=== PATIENT | female | born 1955 | race Caucasian/White ===

== ENCOUNTER → 2018-05-20 12:25 | Outpatient (CLI) | payer OTHER, SELFPAY ==
--- NOTE | 2018-05-20 | DI.MG.S_ITS ---
BILATERAL DIGITAL SCREENING MAMMOGRAM 3D/2D WITH CAD: 05/20/2018 CLINICAL: Routine screening. Family history of breast cancer. Comparison is made to exams dated: 04/24/2016 mammogram - [facility], 12/16/2013 mammogram, and 12/08/2011 mammogram - [facility]. The tissue of both breasts is heterogeneously dense. This may lower the sensitivity of mammography. Current study was also evaluated with a Computer Aided Detection (CAD) system. There is an asymmetry in the right breast middle depth outer region seen on the craniocaudal view only. There is possible architectural distortion associated with the asymmetry. No other significant masses, calcifications, or other findings are seen in either breast. IMPRESSION: INCOMPLETE: NEEDS ADDITIONAL IMAGING EVALUATION The asymmetry in the right breast is indeterminate. Additional views with possible ultrasound are recommended. This exam was interpreted at Station ID: [id number]. NOTE: For mammograms, a report in lay terms will be sent to the patient. Approximately 15% of breast malignancies will not be visualized mammographically. In the management of a palpable breast mass, a negative mammogram must not discourage biopsy of a clinically suspicious lesion. Electronically Signed By: Jonathan Porras M.D. ecl/:05/20/2018 20:11:39 letter sent: Additional Imaging Needed ACR BI-RADS Category 0: Incomplete 3340F
== END ==
PROVIDERS: PCP Nurse Practitioner Family; Visit Provider Family Medicine
DX: Z12.31 Encounter for screening mammogram for malignant neoplasm of breast (principal); Z80.3 Family history of malignant neoplasm of breast
CPT/HCPCS: 77063; 77067

== ENCOUNTER → 2018-06-06 13:35 | Outpatient (CLI) | payer OTHER, SELFPAY ==
--- NOTE | 2018-06-06 | DI.MG.S_ITS ---
UNILATERAL RIGHT DIGITAL DIAGNOSTIC MAMMOGRAM 3D/2D WITH ADDITIONAL VIEWS: 06/06/2018 CLINICAL: Additional evaluation requested from prior study. Comparison is made to exams dated: 05/20/2018 mammogram, 04/24/2016 mammogram - [facility], and 12/16/2013 mammogram - [facility]. The tissue of the right breast is heterogeneously dense. This may lower the sensitivity of mammography. There is a benign irregular equal density asymmetry with an indistinct margin in the right breast anterior depth lateral region seen on the craniocaudal view only. This is not seen in additional views. The area appears similar to prior studies. No other significant masses or calcifications are seen in the breast. IMPRESSION: BENIGN There is no mammographic evidence of malignancy. A 1 year screening mammogram is recommended. This exam was interpreted at Station ID: [id number]. NOTE: For mammograms, a report in lay terms will be sent to the patient. Approximately 15% of breast malignancies will not be visualized mammographically. In the management of a palpable breast mass, a negative mammogram must not discourage biopsy of a clinically suspicious lesion. Electronically Signed By: Navneet Hui M.D. ddsheree/:06/06/2018 14:46:57 letter sent: Normal Exam ACR BI-RADS Category 2: Benign Finding(s) 3342F
== END ==
PROVIDERS: PCP Nurse Practitioner Family; Visit Provider Family Medicine
DX: R92.8 Other abnormal and inconclusive findings on diagnostic imaging of breast (principal)
CPT/HCPCS: 77065; G0279

== ENCOUNTER → 2019-09-25 12:04 | Outpatient (CLI) | payer MEDICARE, OTHER, SELFPAY ==
--- NOTE | 2019-09-25 | DI.MG.S_ITS ---
BILATERAL DIGITAL SCREENING MAMMOGRAM 3D/2D WITH CAD: 09/25/2019 CLINICAL: Routine screening. Family history of breast cancer. Comparison is made to exams dated: 06/06/2018 mammogram, 04/24/[address] [facility], 12/16/2013 mammogram - [facility], and 05/20/2018 [facility]. The tissue of both breasts is heterogeneously dense. This may lower the sensitivity of mammography. Current study was also evaluated with a Computer Aided Detection (CAD) system. No significant masses, calcifications, or other findings are seen in either breast. There has been no significant interval change. IMPRESSION: NEGATIVE There is no mammographic evidence of malignancy. A 1 year screening mammogram is recommended. This exam was interpreted at Station ID: [id number]. NOTE: For mammograms, a report in lay terms will be sent to the patient. Approximately 15% of breast malignancies will not be visualized mammographically. In the management of a palpable breast mass, a negative mammogram must not discourage biopsy of a clinically suspicious lesion. Electronically Signed By: Brielle espinoza/saira:09/25/2019 13:56:53 letter sent: Normal Exam ACR BI-RADS Category 1: Negative 3341F
== END ==
PROVIDERS: PCP Nurse Practitioner Family; Visit Provider Family Medicine
DX: Z12.31 Encounter for screening mammogram for malignant neoplasm of breast (principal); Z80.3 Family history of malignant neoplasm of breast; M85.851 Other specified disorders of bone density and structure, right thigh; Z78.0 Asymptomatic menopausal state; Z82.62 Family history of osteoporosis
CPT/HCPCS: 77063; 77067; 77080

== ENCOUNTER 2020-03-01 12:27 | Day surgery (SDC) | payer MEDICARE, OTHER, SELFPAY ==
[2020-02-24 11:09] VITALS: BMI 23.1
[2020-03-01] VITALS (9 sets, daily range): BP systolic 103–147; BP diastolic 65–88; PULSE 58–86; RESP 10–18; TEMP 36.2–36.9; O2SAT 95–100; BMI 23.1
--- NOTE | 2020-03-01 | PATH_ITS ---
[facility] Accession Number: [id number] . 01 Material submitted: . endometrium - ENDOMETRIAL CURETTINGS . 01 Clinical history: . HYSTEROSCOPY D / C . 01 Diagnosis: Endometrium, Curettage: Superficial fragments of mildy atypical glandular/papillary proliferation; please see comment. MRV 03/10/2020 1808 Local . 01 Comment: Histologic sections are predominantly of a complex hyperplastic mucinous mucosa with active inflammation and foci of mild nuclear atypia. Also present are few superficial strips of endometrial mucosa. Per discussion with Dr. Bailey, this tissue was sampled from a polypoid lesion in the right lateral to posterior lower uterine segment, not within the endocervix, and did not have the typical clinical appearance of an endocervical polyp. 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 In this setting, there is increased likelihood of an unsampled carcinoma. As such, close clinical followup and, if indicated, repeat sampling is recommended. . As part of routine quality assurance clerk, Dr. Ortez has reviewed this case and agrees with the interpreation above. The histologic findings were discussed between Dr. Huynh and Dr. Bailey on 03/10/2020 at 11:30 a.m. . 01 Electronically signed: . Shyam Huynh MD, PhD, Pathologist NPI- [id number] . 01 Gross description: . ENDOMETRIAL CURETTINGS: Received in formalin are multiple fragment(s) of davidson, soft tissue measuring 2.5 x 1.8 x 0.2 cm in aggregate submitted entirely in 1 cassette(s) /Q 03/02/2020 0709 Local . 01 Pathologist provided ICD-10: N95.0, N88.2 . 01 CPT . 233999 Performed at: 01 [facility] [address], [place], [place] [id number] MD Navneet Romero MD Phone: [phone]
[2020-03-01] MEDS: LACTATED RINGERS 1,000 ML 42 ML IV (13:23)
[2020-03-01 13:25] LABS: Add Manual Diff / Slide Review NO; Basophils Absolute Auto 0 /uL (0-100); Basophils Percent Auto 0.8 % (0-2); Eosinophils Absolute Auto 0 /uL (0-450); Eosinophils Percent Auto 0.5 % (2-4); Hematocrit 41.4 % (36-46); Lymphocytes Absolute Auto 1500 /uL (1100-4500); Lymphocytes Percent Auto 25.5 % (25-40); Mean Corpuscular HGB Conc 33.8 % (30-36); Mean Corpuscular Hemoglobin 30.1 PG (26-34); Mean Corpuscular Volume 89.2 fL (80-100); Monocytes Absolute Auto 400 /uL (0-900); Monocytes Percent Auto 7.4 % (3-14); Neutrophils Absolute Auto 3900 /uL (1500-7000); Neutrophils Percent Auto 65.8 % (50-75); Platelet Count 198 X10^3/uL (150-400); Red Blood Cell Count 4.64 X10^6/uL (4.0-5.2); Red Cell Distribution Width 12.7 % (11.6-14.8); White Blood Cell Count 5.9 X10^3/uL (4.5-11.0)
--- NOTE | 2020-03-01 13:27 | PM.PREOP ---
Pre-operative Note COVID-19 COVID-19 status: Negative Result date/Date tested (Pos, Neg/Pending): 02/27/20 Interval Note History & Physical reviewed/Exam performed by Physician: Yes Changes to H&P: Yes H&P completed within 30 days and has changed as indicated here:: Patient is on to additional medications, now taking flecainide and diltiazem for her cardiac history, AFib. Medications and doses added in the EMR. No new allergies. No other changes to medical history.
[2020-03-01 13:43] LABS: Alanine Aminotransferase 17 IU/L (<35); Albumin 4.4 g/dL (3.5-5.0); Albumin Globulin Ratio 1.4 (1.0-2.8); Alkaline Phosphatase 81 U/L (38-126); Aspartate Aminotransferase 35 IU/L (14-36); BUN Creatinine Ratio 16.1 (6-22); Bilirubin Total 1.2 mg/dL (0.2-1.3); Blood Urea Nitrogen 15 mg/dL (7-17); Calcium 9.4 mg/dL (8.4-10.2); Carbon Dioxide 25 mmol/L (22-32); Chloride 105 mmol/L (98-107); Estimated Glomerular Filt Rate > 60.0 mL/min (>60); Globulin 3.1 g/dL (1.7-4.1); Glucose 102 mg/dL (80-110); HEMOLYSIS 21 (0-50); Potassium 4.1 mmol/L (3.4-5.1); Sodium 139 mmol/L (137-145); Total Protein 7.5 g/dL (6.3-8.2)
--- NOTE | 2020-03-01 14:01 | SUR.OPER ---
Lithotomy on padded OR bed, head on pillow, arms secured on padded arm boards at <90 degrees abduction. Legs secured in padded yellow fins stirrups.
[2020-03-01] MEDS: SILVER NITRATE STICK 1 EACH TOP (14:45)
--- NOTE | 2020-03-01 15:19 | SUR.PHASEI ---
Pt arrived to pACU with oral airway, needing manual chin lift for airway patency. Airway now out, breathing on own.
--- NOTE | 2020-03-01 15:20 | P.OP_ITS ---
Operative Date/Time/Diagnoses Date of procedure: 03/01/20 Time of procedure: 15:00 Pre-op diagnosis: Postmenopausal bleeding, thickened endometrium with vascularity, possible polyp, other endometrial mass or abnormal endometrium Post-op diagnosis: other (Abnormal appearing endometrium suspicious for endometrial cancer) Procedure & Clinicians Procedure: Dilatation and curettage, hysteroscopy Same procedure as scheduled: Yes Surgeon: Demetria Bailey Click Yes if Unassisted: No Anesthesia Type: General Operative Notes Findings: Bimanual examination revealed an anteverted mobile normal size uterus. No adnexal masses were palpated. Cervix palpated to be normal. On speculum exam cervix was normal in appearance. Cervical os was slightly open now after her misoprostol. On hysteroscopy there was a cluster of white polypoid, abnormal appearing endometrium in the lower uterine segment on her right lateral to right posterior uterine wall. The area of abnormal tissue was just beyond the internal cervical os. There was some stringy white adhesions extending from in front of this abnormal tissue across the lower uterine cavity to her left side. The stringy adhesions were no longer visible after the curettage on repeat hysteroscopy. Remainder of the endometrial cavity appeared normal with the endometrium appearing normal in the other areas of her uterus. There were no other visible lesions, no polyps or submucosal fibroids. The cavity was visualized to the uterine fundus. The left tubal ostia was visible. The right cornua was visible but tubal ostia not visible. Specimen(s): other (Endometrial curettings) Estimated Blood Loss (mL): 5 Procedure in detail: After being properly identified she was transferred to the operating room. After an adequate level of general anesthesia was obtained she was [facility] in the dorsal lithotomy position. Bimanual examination was performed. She was prepped and draped in routine sterile fashion. Her bladder was sterilely drained with a rubber catheter with the prep. An open-sided graves speculum was placed and the cervix was grasped with a single-tooth tenaculum. The cervical os appears slightly open, status post her misoprostol today. A very small dilator was able to be passed without difficulty. The next dilator was passed as well without difficulty. The uterus was then sounded, sounded to 5.5 cm. The cervical os was further sterilely dilated to a number 8 dilator. The small hysteroscope was placed. The uterine cavity and cervical canal were inspected with the above-noted findings. Normal saline solution was used as the uterine distention medium. Small polyp forceps were initially placed and attention placed to the area of the abnormal tissue, to try to remove some tissue in that area. A minimal amount tissue was removed. With appearance of tissue, it appeared curettage with likely sample and remove the tissue, but I did not want to risk not obtaining an adequate sample. At this time the cervix was further dilated up to a #9, to be able to pass the resectoscope for a targeted biopsy with the loop. The resectoscope was passed with ease. The uterine distention medium was changed to sorbitol. With placing the resectoscope, with the fluid through the scope a fair amount of white abnormal appearing tissue came through, had been flushed through the cervical canal. The scope was removed and the tissue was collected. With replacing the scope there was a filmy look that was determined to be from the lens of the scope. With changing the scope there was difficulty with the light attachment. At this point with appearing to obtain adequate tissue, rather than await getting another attachement for the ersectoscope, curettage was performed with attention to the right lower uterine segment and a good amount of the abnormal appearing tissue was obtained. The smaller hysteroscope was again placed and visualization revealed most of the abnormal tissue area to have been removed, well sampled. Repeat inspection revealed no other abnormal appearing areas and again no polyps. A curette was again placed and sharp curettage of the remainder of the uterine cavity was also performed. Samples all placed on Telfa to go to pathology as one specimen. The tenaculum was removed. There was a small amount of persistent bleeding at her left tenaculum site which ceased after application of silver nitrate. Good hemostasis was noted. The procedure was ended. She tolerated the procedure well and went to recovery room stable condition. Complications: none Post-operative Condition: stable Disposition: PACU Plan for aftercare: Transferred to PACU in good condition. She will resume her Xarelto tonight. Discharge home today if she continues to do well. Will have her follow up in the office in 1 week for ersults and a post-op check, unless she prefers follow- up by phone to stay on [facility], with current Covid 19 precautions
[2020-03-01] MEDS: ACETAMINOPHEN 325 MG TABLET 650 MG PO (16:02)
--- NOTE | 2020-03-01 17:10 | SUR.PREOP ---
Late entry: glucose not done pre op due to blood draw for BMP- MD aware.
== END 2020-03-01 16:20 | disposition home or self-care (01) ==
PROVIDERS: PCP Nurse Practitioner Family; Referring Provider Obstetrics & Gynecology; Visit Provider Obstetrics & Gynecology
PROC: 0UDB8ZZ Extraction of Endometrium, Via Natural or Artificial Opening Endoscopic (ICD-10-PCS; CPT 58558; principal; 2020-03-01 13:30)
DX: N95.0 Postmenopausal bleeding (principal); N94.89 Other specified conditions associated with female genital organs and menstrual cycle; N88.2 Stricture and stenosis of cervix uteri; I48.0 Paroxysmal atrial fibrillation; B00.9 Herpesviral infection, unspecified
CPT/HCPCS: 58558; 80053; 85025; 86850; 86900; 86901; J1100; J1885; J2250; J2405; J2704; J3010

== ENCOUNTER → 2020-10-19 12:01 | Outpatient (CLI) | payer MEDICARE, OTHER, SELFPAY ==
--- NOTE | 2020-10-19 | DI.MG.S_ITS ---
BILATERAL DIGITAL SCREENING MAMMOGRAM 3D/2D WITH CAD: 10/19/2020 CLINICAL: Routine screening. Family history of breast cancer. Comparison is made to exams dated: 09/25/2019 mammogram, 05/20/2018 mammogram, 06/06/2018 mammogram, and 04/24/2016 mammogram - [facility]. The tissue of both breasts is heterogeneously dense. This may lower the sensitivity of mammography. Current study was also evaluated with a Computer Aided Detection (CAD) system. No significant masses, calcifications, or other findings are seen in either breast. There has been no significant interval change. IMPRESSION: NEGATIVE There is no mammographic evidence of malignancy. A 1 year screening mammogram is recommended. This exam was interpreted at Station ID: [id number]. NOTE: For mammograms, a report in lay terms will be sent to the patient. Approximately 15% of breast malignancies will not be visualized mammographically. In the management of a palpable breast mass, a negative mammogram must not discourage biopsy of a clinically suspicious lesion. Electronically Signed By: Zan andres/saira:10/19/2020 12:20:39 letter sent: Normal Exam ACR BI-RADS Category 1: Negative 3341F
== END ==
PROVIDERS: PCP Family Medicine; Referring Provider Family Medicine; Visit Provider Family Medicine
DX: Z12.31 Encounter for screening mammogram for malignant neoplasm of breast (principal); Z80.3 Family history of malignant neoplasm of breast
CPT/HCPCS: 77063; 77067

== ENCOUNTER 2020-10-28 11:58 | Day surgery (SDC) | payer MEDICARE, OTHER, SELFPAY ==
--- NOTE | 2020-10-28 | PATH_ITS ---
[facility] Accession Number: [id number] . 01 Material submitted: . colon - POLYP @DESCENDING COLON . 02 Diagnosis: Descending Colon, Polyp: Serrated lesion, favor sessile serrated adenoma. [facility] 11/02/2020 1048 Local . 02 Electronically signed: . Shyam Huynh MD, PhD, Pathologist NPI- [id number] . 01 Gross description: . POLYP @DESCENDING COLON: Received in formalin are multiple fragment(s) of davidson, soft tissue measuring 0.1 x 0.1 x 0.1 cm to 0.3 x 0.2 x 0.2 cm submitted entirely in 1 cassette(s) /RACHNA 10/29/2020 2019 Local . 02 Pathologist provided ICD-10: D12.4 . 02 CPT . 335040 Performed at: 01 [facility] [address] [place] [address], [place], [place] [id number] MD Navneet Romero MD Phone: [phone] Performed at: [address] [facility] [address] [place], [place] [id number] MD Malia Alberto MD Phone: [phone]
[2020-10-28 12:23] VITALS: BP 131/77; PULSE 85; RESP 16; TEMP 36.3; O2SAT 100; BMI 23.3
[2020-10-28] MEDS: LACTATED RINGERS 1,000 ML 200 ML IV (12:35)
--- NOTE | 2020-10-28 13:02 | PM.HP.1 ---
History of Present Illness History of Present Illness Date Patient Seen: 10/28/20 Time Patient Seen: 13:02 Chief complaint: SDC Narrative: The patient presents for colorectal sreening. They have never had any previous examination for such. No personal or family history of colon cancer. On further history denies any recent gastrointestinal symptoms. No nausea, vomiting, abdominal pain, loss of appetite, unexplained weight loss, change in bowel habits, diarrhea, constipation, melena, hematochezia, or bright red blood per rectum. 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 (~2009) Surgical History History of tonsillectomy Family & Social History Family History Father Lung cancer Hypertension Cataract Emphysema of lung Mother Acute ischemic stroke Aortic stenosis Grandmother Stomach cancer Brain tumor Grandmother Liver tumor Grandfather Colon cancer Social History: household members spouse Tobacco & Substance use: Smoking Status Never smoker alcohol intake current alcohol intake frequency a few times a week Substance Use Type does not use Meds Home Medications and Allergies Home Medications Medication Instructions Recorded Confirmed Type acyclovir 5 % topical ointment 1 applictn TOP 6XD PRN 02/18/20 10/28/20 History diltiazem HCl 120 mg 120 mg PO DAILY 02/18/20 10/28/20 History capsule,extended release 24 hr rivaroxaban 20 mg tablet 20 mg PO DAILY 02/18/20 10/28/20 History flecainide 50 mg PO BID 02/24/20 10/28/20 History Allergies Allergy/AdvReac Type Severity Reaction Status Date / Time bee venom protein (honey bee) Allergy Severe Swelling Verified 10/28/20 12:13 at site Penicillins [PENICILLINS] Allergy Severe Red welts Verified 10/28/20 12:13 Review of Systems Review of Systems Narrative: A 10 point review of systems is negative except as noted in the HPI Exam Vital Signs (past 8 hours): - 10/28/20 12:23 Temperature 97.4 F L Pulse Rate 85 Respiratory Rate 16 Blood Pressure 131/77 Pulse Oximetry 100 Oxygen Delivery Method Room Air Narrative Exam Narrative: General-no acute distress, well nourished adult woman HEENT-moist mucous membranes, no scleral icterus Neck-supple, no lymphadenopathy Chest- non labored respirations, clear to auscultation bilaterally Cardiac-regular rate no peripheral edema Abdomen-soft, nontender, non distended Extremities-warm, well perfused Neurological-alert and oriented, no focal deficits Assessment & Plan Assessment and plan (1) Screening for colon cancer: Status: Acute Assessment & Plan narrative: The patient requires colorectal screening and colonoscopy is recommended. Technical details were discussed. Risks, benefits, alternatives explained. Risks including but not limited to myocardial infarction, aspiration, bleeding, pain, missed lesion, incomplete examination, need for further radiographic studies, colonic perforation, and need for major abdominal surgery were discussed. All questions were answered to their satisfaction, and they are in agreement with this plan.
--- NOTE | 2020-10-28 13:56 | PM.OP.ENDO ---
Operative Date/Time/Diagnoses Date of procedure: 10/28/20 Time of procedure: 13:56 Pre-op diagnosis: Screening colonoscopy Post-op diagnosis: same Procedure & Clinicians Study performed: Colonoscopy Polypectomy Same procedure as scheduled: Yes Indications: 65-year-old female no prior colonoscopy presents for routine screening. Surgeon: Doni Starks Procedure Notes Procedure in detail: Medications: Conscious sedation using 6mg IV midazolam and 300mcg IV of fentanyl The history and physical was performed/updated and the patient is ASA class is 2. The procedure was discussed in detail with the patient. Potential risks complications including infection, bleeding, missed diagnosis, perforation, need for surgery, and were explained. Their questions were answered and informed consent was obtained. Patient was brought to the procedure room and placed standard monitoring equipment. The patient's vital signs were monitored continuously throughout the entire procedure. Prior to starting time-out was performed. The patient was placed in the left lateral recumbent position. Procedural sedation was administered. Examination began with a thorough inspection of the perianal area there was no evidence of fissures, fistulae, external hemorrhoids or cutaneous malignancy. The colonoscopy scope was then placed into the anal canal and was advanced to the cecum, which was identified by the ileocecal valve, the appendiceal orifice and the confluence of the taenia. The scope was then slowly withdrawn examining colon thoroughly in all directions, irrigating it of any residual stool. 5 mm sessile polyp in the descending colon removed in pieces using biopsy forceps. The patient tolerated the procedure well. They will be discharged once criteria are met. The prep was of good/excellent quality. The withdrawl time was 20 minutes. The sedation time was 44 minutes. Findings: polyp Specimen(s): other (Descending colon polyp) Complications: none Impression: Colonic polyp Post-procedure Recommendations: Colonscopy in 5 years Disposition: same day surgery
[2020-10-28] MEDS: MIDAZOLAM 5 MG/5 ML VIAL IV (13:58)
[2020-10-28 13:59] VITALS: BP 112/62; PULSE 57; RESP 10; TEMP 36; O2SAT 97
[2020-10-28] MEDS: fentaNYL 250 MCG/5 ML INJ IV (13:59)
[2020-10-28 14:04] VITALS: BP 98/60; PULSE 57; RESP 10; TEMP 36; O2SAT 98
[2020-10-28 14:09] VITALS: BP 97/56; PULSE 66; RESP 11; TEMP 36.4; O2SAT 100
[2020-10-28 14:14] VITALS: BP 112/61; PULSE 58; RESP 13; TEMP 36.3; O2SAT 100
[2020-10-28 14:21] VITALS: BP 109/74; PULSE 62; RESP 15; TEMP 35.7; O2SAT 100
== END 2020-10-28 14:42 | disposition home or self-care (01) ==
PROVIDERS: PCP Family Medicine; Referring Provider Surgery; Visit Provider Surgery
PROC: 0DJD8ZZ Inspection of Lower Intestinal Tract, Via Natural or Artificial Opening Endoscopic (ICD-10-PCS; CPT 45378; principal; 2020-10-28 13:00)
DX: Z12.11 Encounter for screening for malignant neoplasm of colon (principal); I48.91 Unspecified atrial fibrillation; E78.00 Pure hypercholesterolemia, unspecified; D12.4 Benign neoplasm of descending colon
CPT/HCPCS: 45380; 99152; 99153; J2250; J3010

== ENCOUNTER → 2021-11-02 07:43 | Outpatient (CLI) | payer MEDICARE, OTHER, SELFPAY ==
[2021-11-02 20:29] LABS: COVID19 - ORCAS (NP or Nasal) Negative (Negative)
== END ==
PROVIDERS: PCP Family Medicine; Visit Provider Physician Assistant
DX: Z20.822 Contact with and (suspected) exposure to COVID-19 (principal)
CPT/HCPCS: U0003